=== PATIENT | female | born 1980 | race Caucasian/White ===

== ENCOUNTER 2018-01-05 04:39 | Emergency (ER) | payer OTHER ==
[2018-01-05 05:09] VITALS: BMI 43.0
--- NOTE | 2018-01-05 05:16 | PDOC ---
History of Present Illness - General Chief Complaint: Nausea/Vomiting Stated Complaint: FLU LIKE SYPMTOMS Time Seen by Provider: 01/05/18 05:15 History Source: Patient - History of Present Illness Initial Comments: 01/05/18 06:23 37 year old female with nausea, vomiting, fever, cough, chest congestion since last night,. patient reports that her children has the flu and she has similar symptoms. Denies Influenza vaccine this season. Past History - Past Medical History Allergies/Adverse Reactions: Allergies Allergy/AdvReac Type Severity Reaction Status Date / Time No Known Allergies Allergy Verified 01/05/18 05:08 - Suicide/Smoking/Psychosocial Hx Smoking History: Never smoked Have you smoked in the past 12 months: No Information on smoking cessation initiated: No Hx Alcohol Use: No Drug/Substance Use Hx: No Review of Systems - Review of Systems Able to Perform ROS?: Yes Is the patient limited Kinyarwanda proficient: No ABD/GI: Yes: Nausea, Vomiting *Physical Exam - Vital Signs Last Vital Signs Temp Pulse Resp BP Pulse Ox 102.5 F H 102 H 14 133/73 98 01/05/18 05:08 01/05/18 05:08 01/05/18 05:08 01/05/18 05:08 01/05/18 05:08 - Physical Exam General Appearance: Yes: Appropriately Dressed HEENT: positive: Tonsillar Erythema Respiratory/Chest: positive: Wheezing Cardiovascular: positive: Tachycardia Gastrointestinal/Abdominal: positive: Normal Bowel Sounds, Soft. negative: Tender Extremity: positive: Normal Inspection, Normal Range of Motion Integumentary: positive: Normal Color, Dry, Warm Neurologic: positive: Fully Oriented, Alert, Normal Mood/Affect Medical Decision Making - Medical Decision Making A: influenza RAD P: chest xray tylenol 01/05/18 07:05 Patient signed out to Heather COELLO. 01/05/18 07:07 *DC/Admit/Observation/Transfer Diagnosis at time of Disposition: Influenza - Referrals Referrals: Lauren Wright MD [Primary Care Provider] - - Patient Instructions - Post Discharge Activity
[2018-01-05] MEDS ORDERED: ONDANSETRON *ODT* 4 MG TABLET SL ONE (05:18)
[2018-01-05] MEDS ORDERED: ACETAMINOPHEN 500 MG TABLET (FP) PO ONE (05:27)
[2018-01-05] MEDS: ALBUTEROL SO4 2.5/IPRATROPIUM 0.5 INH SOL 3 ML VIAL.NEB. NEB SCH (06:13)
[2018-01-05] MEDS ORDERED: predniSONE 20 MG TABLET (UD) PO ONE (07:07)
[2018-01-05 07:26] LABS: HCG,QUALITATIVE URINE NEGATIVE
[2018-01-05] MEDS ORDERED: predniSONE 20 MG TABLET (UD) ONE (07:28)
[2018-01-05 07:29] LABS: URINE APPEARANCE CLEAR; URINE BILIRUBIN NEGATIVE (NEGATIVE); URINE BLOOD NEGATIVE (NEGATIVE); URINE COLOR LTYELLOW; URINE GLUCOSE (UA) NEGATIVE (NEGATIVE); URINE KETONE NEGATIVE (NEGATIVE); URINE LEUK ESTERASE NEGATIVE (NEGATIVE); URINE NITRITE NEGATIVE (NEGATIVE); URINE UROBILINOGEN NEGATIVE mg/dL (0.2-1.0)
[2018-01-05 07:44] LABS: URINE PROTEIN 1+ (NEGATIVE)
--- NOTE | 2018-01-05 07:44 | PDOC ---
*Physical Exam - Vital Signs Last Vital Signs Temp Pulse Resp BP Pulse Ox 102.5 F H 102 H 14 133/73 98 01/05/18 05:08 01/05/18 05:08 01/05/18 05:08 01/05/18 05:08 01/05/18 05:08 - Physical Exam General Appearance: Yes: Nourished, Appropriately Dressed. No: Apparent Distress (Pt. appears well. AAOx3 speaking on cell phone.) Respiratory/Chest: positive: Lungs Clear, Normal Breath Sounds. negative: Chest Tender, Respiratory Distress, Accessory Muscle Use, Rales, Rhonchi, Wheezing (resolved after duoneb ) Cardiovascular: positive: Regular Rhythm, Regular Rate, S1, S2 (present). negative: Murmur Extremity: positive: Normal Capillary Refill, Normal Inspection Integumentary: positive: Normal Color, Dry, Warm Neurologic: positive: foreign agent II-XII NML intact, Fully Oriented, Alert, Normal Mood/ Affect, Normal Response, Motor Strength 03/25 ED Treatment Course - ADDITIONAL ORDERS Additional order review: Laboratory Results 01/05/18 07:07 Urine HCG, Qual Negative - Medications Given in the ED: ED Medications Discontinued Medications Generic Name Dose Route Start Last Admin Trade Name Freq PRN Reason Stop Dose Admin Acetaminophen 1,000 mg 01/05/18 05:27 01/05/18 06:00 Tylenol - PO 01/05/18 05:28 1,000 mg ONCE ONE Administration Albuterol/Ipratropium 1 amp 01/05/18 05:45 01/05/18 06:13 Duoneb - NEB 01/05/18 06:01 1 amp Q15M EUSEBIO Administration Ondansetron HCl 4 mg 01/05/18 05:18 01/05/18 06:00 Zofran Odt - SL 01/05/18 05:19 4 mg ONCE ONE Administration Prednisone 60 mg 01/05/18 07:07 01/05/18 07:30 Deltasone - PO 01/05/18 07:08 60 mg ONCE ONE Administration Medical Decision Making - Medical Decision Making 01/05/18 07:43 Sign out received from Zehra Land NP. Pt. is currently waiting on lab work and CXR for presumptive diagnosis of influenza. Pt's son diagnosed with flu recently. Pt is a 37 y/o F who presents to the ED with two days of flu symptoms. Repeat lung exam clear to the bases, no wheezing. Will obtain CXR to r/o PNA. Plan is to dc on tamiflu. UA is negative at this time. No signs of dehydration. 01/05/18 08:30 Wet read of chest x-ray shows a probable R middle lobe pneumonia. Lung sounds are still clear with good aeration to the bases. Oxygen saturation 97% on room air. We will discharge patient home at this time with outpatient treatment for her pneumonia and influenza, and strict return precautions. Patient feels comfortable with discharge planning. Patient understands all discharge instructions and all questions were answered at this time. *DC/Admit/Observation/Transfer Diagnosis at time of Disposition: Influenza Pneumonia Qualifiers: Pneumonia type: due to unspecified organism Laterality: right Lung location: middle lobe of lung Qualified Code(s): J18.1 - Lobar pneumonia, unspecified organism - Discharge Dispostion Disposition: HOME Condition at time of disposition: Stable Admit: No - Prescriptions Prescriptions: Albuterol Sulfate Inhaler - [Ventolin HFA Inhaler -] 1 - 2 inh PO Q4H #1 inhaler Azithromycin [Zithromax 250mg Tablets -] 250 mg PO UTDICT #6 tab Ibuprofen 800 mg PO TID #30 tablet Oseltamivir Phosphate [Tamiflu] 75 mg PO BID #10 capsule predniSONE [Deltasone -] 40 mg PO DAILY #8 tablet - Referrals Referrals: Lauren Wright MD [Primary Care Provider] - - Patient Instructions Printed Discharge Instructions: DI for Pneumonia -- Adult, DI for Influenza -- Adult Additional Instructions: You have the flu and pneumonia. The flu symptoms will last approximately 1 week with fevers. This is normal. You were prescribed Tamiflu, azithromycin, prednisone, albuterol, and ibuprofen. Please take the Tamiflu twice a day for 5 days to help with the flu symptoms. Please take the azithromycin as directed starting today for the pneumonia. Please take the prednisone starting tomorrow for the next 4 days. You were given her first dose of prednisone in the emergency department. You may take the albuterol every 4 hours as needed for cough or wheezing. You may take the ibuprofen every 8 hours as needed for fevers or body aches. Please take this medication with food. Please drink plenty of fluids including water, juices, Gatorade. This will help with the fever as well. Warm tea, honey may help with the sore throat. Eat a bland diet including bananas, applesauce, toast, plain rice. Please follow-up with your primary care doctor within 5 days due to both influenza and pneumonia. Return to the emergency department immediately if you have any shortness of breath, wheezing, difficulty breathing, increased nausea and vomiting, signs of dehydration, fevers that are still over 102 despite treatment with ibuprofen and Tylenol, or have any changes in your symptoms. - Post Discharge Activity Forms/Work/School Notes: Back to Work
[2018-01-05 07:58] LABS: EPI CELLS RARE /HPF (FEW); URINE MUCUS RARE
[2018-01-05 08:46] VITALS: BP 135/75; PULSE 99; TEMP 99.9
== END 2018-01-05 08:46 | disposition home or self-care (01) ==
LOC: JER 04:39
PROC: 3E0F7GC Introduction of Other Therapeutic Substance into Respiratory Tract, Via Natural or Artificial Opening (ICD-10-PCS; principal; 2018-01-05)
DX: J11.00 Influenza due to unidentified influenza virus with unspecified type of pneumonia (principal)
CPT/HCPCS: 71046-TC-FY; 81003; 81015; 84703; 99281-25

== ENCOUNTER 2018-01-09 18:45 | Emergency (ER) | payer OTHER ==
[2018-01-09] MEDS ORDERED: ALBUTEROL SO4 2.5/IPRATROPIUM 0.5 INH SOL 3 ML VIAL.NEB. NEB ONE ×2 (18:58→21:03)
--- NOTE | 2018-01-09 18:58 | PDOC ---
Rapid Medical Evaluation Time Seen by Provider: 01/09/18 18:55 Medical Evaluation: Allergies Allergy/AdvReac Type Severity Reaction Status Date / Time No Known Allergies Allergy Verified 01/05/18 05:08 01/09/18 18:55 I have performed a brief in-person evaluation of this patient. The patient presents with a chief complaint of: hx of asthma, coughing x 4 days , denies fevers, chills, + nausea, +diarrhea, denies vomiting, seen here two days ago , dx with pneumonia and flu, given tamiflu/zpack/prednisone/albuterol Pertinent physical exam findings: expiratory wheeze b/l, sat 100% I have ordered the following: diony ordoñez The patient will proceed to the ED for further evaluation. Discharge Disposition - Diagnosis Cough - Referrals - Patient Instructions - Post Discharge Activity
[2018-01-09 19:02] VITALS: BP 124/74; PULSE 87; TEMP 97.7; BMI 43.0
[2018-01-09] MEDS ORDERED: DEXAMETHASONE 4 MG TABLET (FP) PO ONE (21:00)
[2018-01-09] MEDS ORDERED: DEXAMETHASONE SOD PHOSPHATE 10 MG/1 ML VIAL ONE (21:03)
[2018-01-09] MEDS: ALBUTEROL SO4 2.5/IPRATROPIUM 0.5 INH SOL 3 ML VIAL.NEB. NEB SCH ×4 (21:12→21:57)
--- NOTE | 2018-01-09 21:31 | PDOC ---
History of Present Illness - General Chief Complaint: Wheezing Stated Complaint: S.O.B Time Seen by Provider: 01/09/18 18:55 History Source: Patient - History of Present Illness Initial Comments: 01/09/18 20:52 37 year old female diagnosed with influenza on 01/05 s/p tamiflu and azithromycin. patient reports that she is currently on prednisone c/o SOB and wheezing x 3 days. reports that inhaler is not helping with the wheeze. last treatment at 6 pm Past History - Past Medical History Allergies/Adverse Reactions: Allergies Allergy/AdvReac Type Severity Reaction Status Date / Time No Known Allergies Allergy Verified 01/05/18 05:08 Home Medications: Ambulatory Orders Albuterol Sulfate Inhaler - [Ventolin HFA Inhaler -] 1 - 2 inh PO Q4H #1 inhaler 01/05/18 Azithromycin [Zithromax 250mg Tablets -] 250 mg PO UTDICT #6 tab 01/05/18 Ibuprofen 800 mg PO TID #30 tablet 01/05/18 Oseltamivir Phosphate [Tamiflu] 75 mg PO BID #10 capsule 01/05/18 Albuterol 0.083% Nebulizer Margie [Ventolin 0.083% Nebulizer Soln -] 1 neb NEB Q4H PRN #50 vial 01/09/18 Nebulizer [Aeroeclipse II] 1 each MC QID PRN #1 each 01/09/18 - Suicide/Smoking/Psychosocial Hx Smoking History: Never smoked Have you smoked in the past 12 months: No Information on smoking cessation initiated: No Hx Alcohol Use: No Drug/Substance Use Hx: No Review of Systems - Review of Systems Able to Perform ROS?: Yes Is the patient limited Romansh proficient: No Constitutional: No: Symptoms Reported, See HPI, Chills, Diaphoresis, Fever, Loss of Appetite, Malaise, Night Sweats, Weakness, Weight Stable, Unintentional Wgt. Loss, Unexplained wgt Loss, Other HEENTM: No: Symptoms Reported, See HPI, Eye Pain, Blurred Vision, Tearing, Recent change in vision, Double Vision, Cataracts, Ear Pain, Ocular Prothesis, Ear Discharge, Nose Pain, Nose Congestion, Tinnitus, Nose Bleeding, Hearing Loss , Throat Pain, Throat Swelling, Mouth Pain, Dental Problems, Difficulty Swallowing, Mouth Swelling, Other Respiratory: Yes: Cough, Wheezing ABD/GI: No: Symptoms Reported, See HPI, Abdominal Distended, Abd. Pain w/ defecation, Blood Streaked Bowels, Constipated, Diarrhea, Difficulty Swallowing , Nausea, Poor Appetite, Poor Fluid Intake, Rectal Bleeding, Vomiting, Indigestion, Abdominal cramping, Tarry Stools, Other *Physical Exam - Vital Signs Last Vital Signs Temp Pulse Resp BP Pulse Ox 97.7 F 87 22 124/74 100 01/09/18 18:58 01/09/18 18:58 01/09/18 18:58 01/09/18 18:58 01/09/18 18:58 - Physical Exam General Appearance: Yes: Appropriately Dressed Respiratory/Chest: positive: Wheezing, Other (coarse breath sounds) Gastrointestinal/Abdominal: positive: Normal Bowel Sounds, Soft Extremity: positive: Normal Capillary Refill, Normal Inspection, Normal Range of Motion Integumentary: positive: Normal Color, Dry, Warm Neurologic: positive: Fully Oriented, Alert, Normal Mood/Affect Progress Note - Progress Note Progress Note: A: asthma exacerbation P; duoneb x q15m decadron reevaluate Medical Decision Making - Medical Decision Making 01/09/18 21:40 Patient alert ox3. breath sounds clear. patient reports feeling better. will d/ chome. *DC/Admit/Observation/Transfer Diagnosis at time of Disposition: Cough - Discharge Dispostion Disposition: HOME - Prescriptions Prescriptions: Albuterol 0.083% Nebulizer Margie [Ventolin 0.083% Nebulizer Soln -] 1 neb NEB Q4H PRN #50 vial PRN Reason: Asthma Nebulizer [Aeroeclipse II] 1 each MC QID PRN #1 each PRN Reason: Asthma - Referrals Referrals: Lauren Wright MD [Primary Care Provider] - - Patient Instructions Printed Discharge Instructions: Asthma -- Adult Additional Instructions: please stop taking prednisone as previously prescribed. continue albuterol every 4 hours as needed for wheezing. follow up with your doctor as soon as possible, return to the ER if symptoms worsen. - Post Discharge Activity Forms/Work/School Notes: Back to Work
== END 2018-01-09 21:56 | disposition home or self-care (01) ==
LOC: JER 18:45
PROC: 3E0F7GC Introduction of Other Therapeutic Substance into Respiratory Tract, Via Natural or Artificial Opening (ICD-10-PCS; principal; 2018-01-09)
PROC: 3E0F7GC Introduction of Other Therapeutic Substance into Respiratory Tract, Via Natural or Artificial Opening (ICD-10-PCS; 2018-01-09)
DX: J45.901 Unspecified asthma with (acute) exacerbation (principal)
CPT/HCPCS: 94640; 99281-25

== ENCOUNTER 2022-04-14 10:04 | Emergency (ER) | payer OTHER ==
[2022-04-14 10:23] VITALS: BP 125/76; PULSE 101; TEMP 97.9; BMI 43.2
[2022-04-14] MEDS ORDERED: IBUPROFEN 600 MG TABLET (FP) PO ONE ×2 (10:53→11:24)
[2022-04-14] MEDS ORDERED: CYCLOBENZAPRINE HCL 10 MG TABLET (FP) PO ONE (13:10)
[2022-04-14] MEDS ORDERED: CYCLOBENZAPRINE HCL 10 MG TABLET (FP) ONE (13:12)
== END 2022-04-14 13:17 | disposition home or self-care (01) ==
LOC: JERFT 10:04
DX: M25.522 Pain in left elbow (principal); M25.561 Pain in right knee
CPT/HCPCS: 73070-TC-LT-FY; 73090-TC-LT-FY; 73130-TC-RT-FY; 73562-TC-RT-FY; 99284-25